=== PATIENT | female | born 1975 | race Caucasian/White ===

== ENCOUNTER 2017-04-10 11:21 | Emergency (ER) | payer OTHER ==
[2017-04-10 11:49] VITALS: O2SAT 100
[2017-04-10 12:34] LABS: RBC URINE 1 /hpf (0-3); URINE BILIRUBIN NEGATIVE (NEGATIVE); URINE BLOOD NEGATIVE (NEGATIVE); URINE COLOR Yellow (YELLOW); URINE GLUCOSE (UA) NORMAL (Normal); URINE KETONE 2+ mg/dL (NEGATIVE); URINE LEUKOCYTE ESTERASE 1+ Leu/uL (Negative); URINE PROTEIN NEGATIVE (NEGATIVE); WBC URINE 1 /hpf (0-5)
[2017-04-10] MEDS ORDERED: Sodium Chloride 0.9% 500 ML IV ONE (12:40)
--- NOTE | 2017-04-10 13:06 | C.PDOC ---
History Of Present Illness 42 yr old female with , presents to the ER with lower abdominal pain and vaginal bleeding gradually worsening for the past 3 days. Patient reports LMP was December 26, 2016. Patient denies previous history of miscarriages or ectopic . Pt denies fever, chills, headache, dizziness, CP, SOB, dyspnea, diaphoresis, palpitation, vomiting, diarrhea, dysuria, hematuria, back pain. Pt admits, was seen at [facility] who sent pt to Ed foir further evaluation, Otherwise, pt denies any care as up to day. Time Seen by Provider: 04/10/17 11:52 Chief Complaint (Nursing): Abdominal Pain History Per: Patient History/Exam Limitations: no limitations Onset/Duration Of Symptoms: Gradual Past Medical History Reviewed: Historical Data, Nursing Documentation, Vital Signs Vital Signs: Last Vital Signs Temp 98 F 04/10/17 11:48 Pulse 75 04/10/17 11:48 Resp 20 04/10/17 11:48 BP 118/79 04/10/17 11:48 Pulse Ox 100 04/10/17 14:27 - Medical History PMH: Kidney Stones Family History: States: No Known Family Hx - Social History Hx Alcohol Use: No Hx Substance Use: No - Immunization History Hx Tetanus Toxoid Vaccination: No Hx Influenza Vaccination: No Hx Pneumococcal Vaccination: No Review Of Systems Except As Marked, All Systems Reviewed And Found Negative. Gastrointestinal: Positive for: Abdominal Pain (Lower). Negative for: Nausea, Vomiting, Diarrhea, Constipation Genitourinary: Positive for: Vaginal Bleeding. Negative for: Dysuria Neurological: Negative for: Weakness, Numbness Physical Exam - Physical Exam Appears: Well, Non-toxic, No Acute Distress Skin: Warm, Dry, No Rash Head: Normacephalic Eye(s): bilateral: PERRL Nose: No Flaring, No Discharge Oral Mucosa: Moist, No Drooling Throat: No Erythema, No Drooling Neck: Supple Chest: Symmetrical, No Tenderness Cardiovascular: Rhythm Regular, No Murmur, No JVD Respiratory: No Decreased Breath Sounds, No Accessory Muscle Use, No Rales, No Rhonchi, No Stridor, No Wheezing Gastrointestinal/Abdominal: Soft, Tenderness (Diffuse lower abdominal tenderness ), No Guarding, No Rebound Back: No CVA Tenderness Pelvic: Normal Speculum Exam, No Vaginal Bleeding, No Vaginal Discharge Extremity: No Pedal Edema, No Swelling Neurological/Psych: Oriented x3, Normal Speech ED Course And Treatment - Laboratory Results Result Diagrams: 04/10/17 13:13 04/10/17 13:13 O2 Sat by Pulse Oximetry: 100 (RA) Pulse Ox Interpretation: Normal - CT Scan/US US - Transvaginal Other Rad Studies (CT/US): Read By Radiologist, Radiology Report Reviewed CT/US Interpretation: Pelvic ultrasound. History: . Vaginal bleeding. Comparison: None available. Technique: Real-time sonography was performed through the pelvis utilizing transabdominal technique. Findings: Uterus: 12.1 x 9.3 x 6.2 centimeters. Heterogeneous echotexture. Anteverted. Cervix measures 2.4 centimeters. Intrauterine with intrauterine gestational sac noted. [place]-rump length measures 4.3 centimeters corresponding to a gestational age of approximately 11 weeks and 1 day. heart rate of 143 beats per minute. No free fluid in the pelvic cul-de-sac. Right ovary: 1.7 x 1.3 x 2.1 centimeters. Normal flow. Left ovary: 2.4 x 1.1 x 2.3 centimeters. Normal flow. Impression: Intrauterine corresponding to a gestational age of approximately 11 weeks and 1 day with crown-rump length of 4.3 centimeters. heart rate of 143 beats per minute. Limited 1st trimester ultrasound for viability purposes only. Continued interval followup with serial ultrasound, serial HCG levels, and gynecological consultation would be helpful if clinically indicated. Progress Note: On re-eavluation, pt remained stable. Afebrile, hemodynamicaly stable. Non-toxic. Abd: benign, (-) guarding, (-) rebound. back: (-) CVA tenderness. Blood work review and appears normal. US review (+) single IUP 11w1d, FHR 143/min, no acute abnormalities. Beta quant c/w 11 wks . Blood work O positive. results review and discussed with pt. Pt advised return to ED in 2 days to repeat beta quant. return to Ed [place] time ifa nyw orsening or new changes. Pt understands and agrees with discharges. Medical Decision Making Medical Decision Making: PLAN: * US - Transvaginal * CBC * BMP * HCG * Urinalysis * Sodium Chloride IV Disposition Counseled Patient/Family Regarding: Studies Performed, Diagnosis, Need For Followup - Disposition [facility] [Provider Group] [facility] [Provider Group] Disposition: HOME/ ROUTINE Disposition Time: 14:02 Condition: STABLE Additional Instructions: LIght duty, avoid heavy lifting for 1 week no sexual activity for 1 week RETURN TO ED IN 2 DAYS TO REPEAT BETA QUANT RETURN TO ED AT ANY TIME IF ANY WORSENING OR NEW CHANGES. Instructions: Threatened Miscarriage (ED) Forms: [employer] ([place]) Print Language: UKRAINIAN - Clinical Impression Clinical Impression: Threatened - PA / AIR TANK ASSEMBLER / Resident Statement MD/DO has reviewed & agrees with the documentation as recorded. - Scribe Statement The provider has reviewed the documentation as recorded by the Scribe Brielle Rabago All medical record entries made by the Rejiibshelbi were at my direction and personally dictated by me. I have reviewed the chart and agree that the record accurately reflects my personal performance of the history, physical exam, medical decision making, and the department course for this patient. I have also personally directed, reviewed, and agree with the discharge instructions and disposition.
[2017-04-10 13:28] LABS: BASO # 0.1 K/uL (0.0-0.2); BASO % 0.6 % (0.0-2.0); EOS # 0.1 K/uL (0.0-0.7); EOS % 1.3 % (0.0-4.0); HEMATOCRIT 38.3 % (34.0-47.0); LYMPH # 2.5 K/uL (1.0-4.3); LYMPH % 30.9 % (20.0-40.0); MEAN CELL VOLUME 91.3 fL (81.0-99.0); MEAN CORPUSCULAR HEMOGLOBIN 31.2 pg (27.0-31.0); MEAN CORPUSCULAR HGB CONC 34.2 g/dL (33.0-37.0); MEAN PLATELET VOLUME 8.2 fL (7.2-11.7); MONO # 0.7 K/uL (0.0-0.8); RED CELL DISTRIBUTION WIDTH 13.8 % (11.5-14.5); WHITE BLOOD COUNT 8.2 K/uL (4.8-10.8)
[2017-04-10 13:39] LABS: CHLORIDE 101 mmol/L (98-107); POTASSIUM 3.5 mmol/L (3.6-5.2); SODIUM 134 mmol/L (132-148)
[2017-04-10 13:42] LABS: BLOOD UREA NITROGEN 6 mg/dL (7-17); CALCIUM 8.2 mg/dl (8.6-10.4); CARBON DIOXIDE 20 mmol/L (22-30); GFR AFRICAN-AMERICAN > 60; GLUCOSE,RANDOM 69 mg/dL (65-105)
--- NOTE | 2017-04-10 14:01 | US ---
Pelvic ultrasound History: . Vaginal bleeding. Comparison: None available. Technique: Real-time sonography was performed through the pelvis utilizing transabdominal technique. Findings: Uterus: 12.1 x 9.3 x 6.2 centimeters. Heterogeneous echotexture. Anteverted. Cervix measures 2.4 centimeters. Intrauterine with intrauterine gestational sac noted. [place]-rump length measures 4.3 centimeters corresponding to a gestational age of approximately 11 weeks and 1 day. heart rate of 143 beats per minute. No free fluid in the pelvic cul-de-sac. Right ovary: 1.7 x 1.3 x 2.1 centimeters. Normal flow. Left ovary: 2.4 x 1.1 x 2.3 centimeters. Normal flow. Impression: Intrauterine corresponding to a gestational age of approximately 11 weeks and 1 day with crown-rump length of 4.3 centimeters. heart rate of 143 beats per minute. Limited 1st trimester ultrasound for viability purposes only. Continued interval followup with serial ultrasound, serial HCG levels, and gynecological consultation would be helpful if clinically indicated.
[2017-04-10 15:14] VITALS: BP 117/65; PULSE 72; RESP 16; TEMP 98.7
== END 2017-04-10 15:10 | disposition home or self-care (01) ==
LOC: C.ER 11:21
DX: O20.0 Threatened abortion (principal); Z3A.11 11 weeks gestation of pregnancy
CPT/HCPCS: 76801; 80048; 81001; 84702; 84703; 85025; 86850; 86900; 87086; 99285; J7040

== ENCOUNTER 2017-04-13 09:53 | Emergency (ER) | payer OTHER ==
[2017-04-13 09:59] VITALS: O2SAT 98
--- NOTE | 2017-04-13 10:35 | C.PDOC ---
History Of Present Illness 42 year old female presents to the ED requesting a repeat Beta hCG. She reports she is and LMP was 12/26/2016. Patient denies any vaginal bleeding, vaginal discharge, or abdominal pain. Chief Complaint (Nursing): Medical Clearance History Per: Patient History/Exam Limitations: no limitations Severity: None Pain Scale Rating Of: 0 Reports Recently: Seen In ED Recent travel outside of the [place]: No Additional History Per: Prior Records Past Medical History Reviewed: Historical Data, Nursing Documentation, Vital Signs Vital Signs: Last Vital Signs Temp 97.8 F 04/13/17 11:26 Pulse 76 04/13/17 11:26 Resp 18 04/13/17 11:26 BP 107/73 04/13/17 11:26 Pulse Ox 98 04/13/17 11:30 - Medical History PMH: Kidney Stones, Chronic Kidney Disease Family History: States: Unknown Family Hx - Social History Hx Alcohol Use: No Hx Substance Use: No - Immunization History Hx Tetanus Toxoid Vaccination: No Hx Influenza Vaccination: No Hx Pneumococcal Vaccination: No Review Of Systems Constitutional: Negative for: Fever Gastrointestinal: Negative for: Nausea, Vomiting, Abdominal Pain Genitourinary: Negative for: Vaginal Bleeding Physical Exam - Physical Exam Appears: Non-toxic, No Acute Distress Skin: Warm, Dry Head: Atraumatic, Normacephalic Eye(s): bilateral: Normal Inspection Cardiovascular: Rhythm Regular, No Murmur Respiratory: No Rales, No Rhonchi, No Wheezing, Other (clear to auscultation bilaterally ) Gastrointestinal/Abdominal: Soft, No Tenderness, No Distention, No Guarding, No Rebound Neurological/Psych: Oriented x3 ED Course And Treatment O2 Sat by Pulse Oximetry: 98 (RA) Progress Note: Repeat beta hCG was ordered. Disposition - Disposition Referrals: [employer] [facility]er, [Non-Staff] - Disposition: HOME/ ROUTINE Disposition Time: 11:20 Condition: GOOD Additional Instructions: Thank you for letting us take care of you today. Your provider was Dr. Arcos. You were treated for blood work. The emergency medical care you received today was directed at your acute symptoms. If you were prescribed any medication, please fill it and take as directed. It may take several days for your symptoms to resolve. Return to the Emergency Department if your symptoms worsen, do not improve, or if you have any other problems. Please contact your doctor or call one of the physicians/clinics you have been referred to that are listed on the Patient Visit Information form that is included in your discharge packet. Bring any paperwork you were given at discharge with you along with any medications you are taking to your follow up visit. Our treatment cannot replace ongoing medical care by a primary care provider (PCP) outside of the emergency department. Thank you for allowing the [facility] team to be part of your care today. Follow up with your CENTRAL STERILIZATION TECHNICIAN as scheduled or if you have any concerns. Mauricio por permitirnos cuidar de usvita cha. Rodriguez proveedor fue el Dr. Arcos. Te trataron por el trabajo de dottie. La atencin mdica de emergencia que recibi hoy estaba dirigida a david sntomas agudos. Si le recetaron algn medicamento, llnelo y tome elma se le indic. Puede llevar varios benitez resolver david sntomas. Regrese al Departamento de Emergencias si david sntomas empeoran, no mejoran o si tiene algn otro problema. Comunquese con rodriguez mdico o llame a emily de los mdicos / clnicas a los que chang sido derivado que figuran en el formulario de informacin de visita del paciente que se incluye en rodriguez paquete de brandy. Lleve consigo cualquier papeleo que reciba al brandy junto con cualquier medicamento que est tomando en rodriguez visita de seguimiento. Nuestro tratamiento no puede reemplazar la atencin m dica continua de un proveedor de atencin primaria (PCP) fuera del departamento de emergencias. Mauricio por permitir que el equipo de [facility] sea parte de rodriguez atencin hoy. Brooks un seguimiento con rodriguez obstetra / gineclogo segn lo programado o si tiene alguna inquietud. Forms: Gen Discharge Inst Irish Print Language: KHMER - Clinical Impression Clinical Impression: with 11 completed weeks gestation - Scribe Statement The provider has reviewed the documentation as recorded by the Scribe Eugenia Strickland All medical record entries made by the Scribe were at my direction and personally dictated by me. I have reviewed the chart and agree that the record accurately reflects my personal performance of the history, physical exam, medical decision making, and the department course for this patient. I have also personally directed, reviewed, and agree with the discharge instructions and disposition.
[2017-04-13 11:29] VITALS: BP 107/73; PULSE 76; RESP 18; TEMP 97.8
== END 2017-04-13 11:34 | disposition home or self-care (01) ==
LOC: C.ER 09:53
DX: Z34.91 Encounter for supervision of normal pregnancy, unspecified, first trimester (principal); Z3A.11 11 weeks gestation of pregnancy

== ENCOUNTER 2017-09-06 06:31 | Emergency (ER) | payer OTHER ==
[2017-09-06 06:59] VITALS: BMI 37.5
[2017-09-06] MEDS ORDERED: Lactated Ringer's 1,000 ML IV SCH ×2 (07:30)
[2017-09-06 08:32] LABS: BASO # 0.1 K/uL (0.0-0.2); BASO % 0.9 % (0.0-2.0); EOS % 0.5 % (0.0-4.0); HEMOGLOBIN 12.9 g/dL (11.0-16.0); LYMPH # 1.3 K/uL (1.0-4.3); MEAN CORPUSCULAR HEMOGLOBIN 31.6 pg (27.0-31.0); MEAN PLATELET VOLUME 10.3 fL (7.2-11.7); MONO # 0.5 K/uL (0.0-0.8); MONO % 5.5 % (0.0-10.0); NEUT # 8.1 K/uL (1.8-7.0); NEUT % 80.1 % (50.0-75.0); RBC 4.08 Mil/uL (3.80-5.20); RED CELL DISTRIBUTION WIDTH 13.5 % (11.5-14.5)
[2017-09-06 08:36] LABS: SQUAMOUS EPITHIAL 27 /hpf (0-5); URINE BACTERIA OCC (<OCC); URINE BILIRUBIN NEGATIVE (NEGATIVE); URINE BLOOD NEGATIVE (NEGATIVE); URINE CLARITY Hazy (Clear); URINE COLOR Amber (YELLOW); URINE GLUCOSE (UA) NORMAL (Normal); URINE LEUKOCYTE ESTERASE 1+ Leu/uL (Negative); URINE PROTEIN 2+ mg/dL (NEGATIVE); URINE UROBILINOGEN NORMAL mg/dL (0.2-1.0)
[2017-09-06 08:41] LABS: MEAN CELL VOLUME 90.3 fL (81.0-99.0)
[2017-09-06 09:15] LABS: ALB/GLOB RATIO 0.9 (1.0-2.1); ALBUMIN 3.4 g/dL (3.5-5.0); ALT/SGPT 19 U/L (9-52); AST/SGOT 24 U/L (14-36); BLOOD UREA NITROGEN 9 mg/dL (7-17); CALCIUM 8.6 mg/dl (8.6-10.4); GFR AFRICAN-AMERICAN > 60; GFR NON-AFRICAN AMERICAN > 60
== END 2017-09-06 09:53 | disposition home or self-care (01) ==
LOC: C.EROB 06:31
DX: O26.893 Other specified pregnancy related conditions, third trimester (principal); Z3A.32 32 weeks gestation of pregnancy; R51 Headache; R19.7 Diarrhea, unspecified; R10.9 Unspecified abdominal pain; O21.9 Vomiting of pregnancy, unspecified
CPT/HCPCS: 80053; 81001; 85025; 99283; J7120

== ENCOUNTER 2017-10-30 21:06 | Emergency (ER) | payer OTHER ==
[2017-10-31 06:11] VITALS: BP 117/57; PULSE 91; RESP 20; TEMP 98.1
== END 2017-10-30 22:30 | disposition home or self-care (01) ==
LOC: C.EROB 21:06
DX: O47.1 False labor at or after 37 completed weeks of gestation (principal); Z3A.40 40 weeks gestation of pregnancy

== ENCOUNTER 2018-10-16 20:44 | Emergency (ER) | payer SELFPAY ==
[2018-10-16 20:44] VITALS: BMI 37.5
[2018-10-16 21:22] VITALS: BP 119/82; PULSE 104; RESP 18; TEMP 98.6; O2SAT 100
[2018-10-16] MEDS ORDERED: Amoxicillin-Clav 875-125 mg Tab PO STA (21:56)
--- NOTE | 2018-10-16 22:00 | C.PDOC ---
History Of Present Illness 43 year old female presents to the ED c/o sore throat associated with subjective fever, cough and rhinorrhea for the past week. Patient reports taking Tylenol for the subjective fever. Patient was treated at an Urgent Care 2 days ago and prescribed azithromycin which she completed, with no relief. Patient denies headache, earache, rash, recent trave, weakness, numbness, dizziness, nausea, vomit, SOB, abdominal pain. Chief Complaint (Nursing): ENT Problem History Per: Patient History/Exam Limitations: no limitations Onset/Duration Of Symptoms: Days Current Symptoms Are (Timing): Still Present Location Of Pain: Throat, Sinus/es Sick Contacts (Context): None Associated Symptoms: Fever, Sore Throat, Cough, Sinus Drainage, Nasal Congestion Ear Symptoms: Bilateral: None Recent travel outside of the [place]: No Additional History Per: Patient Past Medical History Reviewed: Historical Data, Nursing Documentation, Vital Signs Vital Signs: Last Vital Signs Temp 98.6 F 10/16/18 21:18 Pulse 104 H 10/16/18 21:18 Resp 18 10/16/18 21:18 BP 119/82 10/16/18 21:18 Pulse Ox 100 10/16/18 21:18 Primary Care Physician: Non [facility] Provider - Medical History PMH: Kidney Stones, Chronic Kidney Disease Surgical History: No Surg Hx - [facility] Procedures EXTRACTION OF POC, LOW CERVICAL, OPEN APPROACH (10/31/17) Family History: States: Unknown Family Hx - Social History Hx Tobacco Use: No Hx Alcohol Use: No Hx Substance Use: No - Immunization History Hx Tetanus Toxoid Vaccination: No Hx Influenza Vaccination: No Hx Pneumococcal Vaccination: No Review Of Systems Constitutional: Positive for: Fever. Negative for: Chills ENT: Positive for: Nose Discharge, Nose Congestion, Throat Pain Cardiovascular: Negative for: Chest Pain Respiratory: Negative for: Cough, Shortness of Breath Gastrointestinal: Negative for: Nausea, Vomiting, Abdominal Pain Skin: Negative for: Rash Neurological: Negative for: Weakness, Numbness, Headache, Dizziness Physical Exam - Physical Exam Appears: Non-toxic, No Acute Distress Skin: Normal Color, Warm, Dry Head: Atraumatic, Normacephalic Eye(s): bilateral: Normal Inspection Ear(s): Bilateral: Normal Nose: No Discharge Oral Mucosa: Moist Throat: Erythema, Exudate, Other (enlarged tonsils, airway patent) Neck: Normal ROM, Supple Chest: Symmetrical Cardiovascular: Rhythm Regular Respiratory: Normal Breath Sounds, No Rales, No Rhonchi, No Wheezing Neurological/Psych: Oriented x3, Normal Speech, Normal Cognition Gait: Steady ED Course And Treatment O2 Sat by Pulse Oximetry: 100 (On RA) Pulse Ox Interpretation: Normal Medical Decision Making Medical Decision Making: Plan: * augmentin 1 tab PO * Tessalon perles 200 mg PO * Prednisone 20 mg PO Patient reports improvement after medications were given. Patient breathing without difficulty, afebrile in the ED. Patient advised to follow up with PMD. Disposition Counseled Patient/Family Regarding: Diagnosis, Need For Followup, Rx Given - Disposition Referrals: Non [facility] Provider, [Primary Care Provider] - Disposition: HOME/ ROUTINE Disposition Time: 22:15 Condition: STABLE Additional Instructions: Continue meds as prescribed alternate tylenol and motrin as needed for fever salt water gargles four times for sore throat rest and hydration follow u with pmd in 1-2 days return to the Ed if symptoms worsen Prescriptions: Amoxicillin/Clavulanate [Augmentin 875 MG-125 MG] 1 tab PO BID #20 tab Benzonatate [Tessalon Perles] 100 mg PO TID #30 sgl Loratadine [Claritin] 10 mg PO DAILY PRN #30 tab PRN Reason: Allergy Symptoms predniSONE [predniSONE Tab] 20 mg PO DAILY #4 tab Instructions: Strep Throat (DC) Forms: [employer] (Thai) - Clinical Impression Clinical Impression: Sore throat, Pharyngitis - PA / HRIS ANALYST / Resident Statement MD/DO has reviewed & agrees with the documentation as recorded. - Scribe Statement The provider has reviewed the documentation as recorded by the Scribshelbi Her All medical record entries made by the Rejiibshelbi were at my direction and personally dictated by me. I have reviewed the chart and agree that the record accurately reflects my personal performance of the history, physical exam, medical decision making, and the department course for this patient. I have also personally directed, reviewed, and agree with the discharge instructions and disposition.
[2018-10-16] MEDS ORDERED: Amoxicillin-Clav 875-125 mg Tab PO ONE (22:09)
== END 2018-10-16 22:35 | disposition home or self-care (01) ==
LOC: SUPCPDRO 20:44 → C.ER 20:44
DX: J02.9 Acute pharyngitis, unspecified (principal)